=== PATIENT | female | born 1930 | race Caucasian/White ===

== ENCOUNTER → 2016-06-07 | Outpatient (CLI) | payer OTHER ==
[2015-06-02 13:32] VITALS: BP 126/77; PULSE 76
[~2016-06-07] MED LIST: ASPCH81X PO; ATEN-173 PO; CALC-279 PO; FSMD/70 PO; HYDR25TA5 PO; MULTTAB58 PO; TAMO20TA47 PO; vitaminD PO
[2016-06-07 14:02] VITALS: BP 129/77; PULSE 73; TEMP 37; O2SAT 96
--- NOTE | 2016-06-07 14:46 | Radiation Oncology Follow-Up ---
Radiation Oncology Follow-Up Date of Visit Jun 07, 2016. 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 She denies any changes to her breast. She's noted no masses or tenderness no change in the axilla. She's had no swelling of her arm. She is up-to-date on mammography. She is unsure as to whether her next mammogram is scheduled. She is on tamoxifen. She denies any side effects. Allergies Coded Allergies: Codeine (Verified Allergy, Unknown, ., 06/26/13) MAKES HER FEEL; " LIKE SHE'S NOT EVEN HERE" Uncoded Allergies: CODEINE (Allergy, Unknown, 07/20/03) Home Medications Scheduled Alendronate/Cholecalciferol (Fosamax+D 70MG/2800 Iu), 1 TABLET PO WK Aspirin (Aspirin Chewable), 81 MG PO DAILY Atenolol (Tenormin), 25 MG PO DAILY Calcium Citrate-Vitamin D (Calcium Citrate + D), 1 TAB PO DAILY Hydrochlorothiazide (Hydrochlorothiazide), 1 TAB PO DAILY Multiple Vitamin (Multivitamin), 1 TAB PO DAILY Tamoxifen (Nolvadex), 20 MG PO DAILY [vitaminD], 1 TAB PO DAILY Review of Systems Gastrointestinal: Symptoms: WNL Oral: Symptoms: No Problems Respiratory: Symptoms: WNL Urinary: Symptoms: WNL Skin: Symptoms: No Problems Breast: Right Upper Arm Measurement: 27.5 Right Mid Arm Measurement: 24.5 Right Wrist Measurement: 15.9 Left Upper Arm Measurement: 28.4 Left Mid Arm Measurement: 24.0 Left Wrist Measurement: 15.8 Arm Dominence: Right Physical Exam Vital Signs Date Time Temp Pulse Resp B/P Pulse Ox O2 Delivery O2 Flow Rate FiO2 06/07/16 14:02 37.0 73 16 129/77 96 Pain: Pain Location: None Patient Pain Scale: 0 - 10 Initial Pain Intensity: 0.0 Fatigue: None General Appearance: no apparent distress Eyes: normal inspection, EOMI ENT: normal ENT inspection, hearing grossly normal Neck: no adenopathy, thyroid normal Respiratory/Chest: lungs clear, no respiratory distress, no accessory muscle use Breast: Breast examination reveals well-healed incisions of the right breast. There are no masses or tenderness and no axillary adenopathy. The incision is in the upper outer portion of the breast. There are no skin retractions or nipple changes. Using the [place] score cosmesis she has a in excellent outcome. Left breast should no masses or tenderness and no axillary adenopathy. Cardiovascular: regular rate, rhythm, no gallop, no murmur Extremities: no pedal edema Neurologic/Psychiatric: no motor/sensory deficits, alert, normal mood/affect Skin: warm/dry Lymphatic: no adenopathy Additional Studies BILATERAL DIGITAL DIAGNOSTIC MAMMOGRAM TOMOSYNTHESIS WITH CAD: 02/16/2016 CLINICAL HISTORY: Personal history of breast cancer. Asymptomatic. TECHNIQUE: Bilateral CC and MLO 2-D digital and tomosynthesis images, spot magnification right CC and ML views were obtained. Current study was also evaluated with a Computer Aided Detection (CAD) system. COMPARISON: Comparison is made to exams dated: 02/10/2015 mammogram, 01/28/2014 mammogram, 03/25/2013 mammogram, 01/29/2012 mammogram, and 11/23/2010 mammogram - [facility]. BREAST COMPOSITION: The tissue of both breasts is extremely dense, which lowers the sensitivity of mammography. FINDINGS: A linear scar marker overlies the upper outer posterior right breast. There is expected architectural distortion in the upper outer posterior right breast, at the site of prior lumpectomy. There are mild vascular calcifications in the breasts. There are stable groupings of microcalcifications in the superior posterior and lower inner middle one third of the left breast that are unchanged dating back to at least 01/03/2012, therefore likely benign given 4 years of stability. No obvious new mass, architectural distortion or cluster of microcalcifications is seen bilaterally. Recommend follow-up in 1 year for annual bilateral mammography as well as repeat spot magnification views of the right lumpectomy bed. IMPRESSION: IMPRESSION: ACR BI-RADS CATEGORY 2: BENIGN Stable mammographic appearance of the breasts. There is no mammographic evidence of malignancy. Recommend follow-up bilateral mammography in one year and remaining a diagnostic patient so that additional spot magnification views can be obtained of the right lumpectomy bed. These results and recommendations were discussed with the patient at the time of the exam. Approximately 10% of breast cancers are not detected with mammography. A negative mammographic report should not delay biopsy if a clinically suggestive mass is present. Audra Taveras M.D. ay/:02/16/2016 14:45:00 M[employer] Shoulder Pad: Rosaura MARMOLEJO(Ralph)(M), [facility] letter sent: Normal 1/2 BI-RADS Code: ACR BI-RADS Category 2: Benign Dictated by: Audra Taveras MD Signed by: Audra Taveras MD Assessment & Plan Plan: Continue with the scheduled follow-ups. She'll see Dr. Raulito Betancourt on . She did not have mammography scheduled. A mammogram was scheduled for after February 15. She continues on tamoxifen. We asked her to return to our office in 1 year. She may call if she has any questions or concerns in the interim. Total Time In Follow-Up I spent 20 minutes speaking to the patient performing examination. I spent 15 minutes reviewing information in completing this note. Copy To Raulito Betancourt M.D.; Kyung Ibarra PA-C
== END | disposition home or self-care (01) ==
LOC: C.ONC 13:51
PROVIDERS: ATTEND Radiology Radiation Oncology
DX: Z08 Encounter for follow-up examination after completed treatment for malignant neoplasm (principal); Z92.3 Personal history of irradiation; Z85.3 Personal history of malignant neoplasm of breast

== ENCOUNTER → 2017-06-13 | Outpatient (CLI) | payer OTHER ==
[2015-06-02 13:32] VITALS: BP 126/77; PULSE 76
[~2017-06-13] MED LIST changes: -TAMO20TA47 PO; +TAMO20TA9 PO
[2017-06-13 14:35] VITALS: BP 139/79; PULSE 68; TEMP 36.7; O2SAT 94
--- NOTE | 2017-06-13 16:26 | Radiation Oncology Follow-Up ---
Radiation Oncology Follow-Up Date of Visit Jun 13, 2017. 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 She denies any changes to her breasts. She has noted no masses or tenderness no change of the axilla. She has had no swelling of her arm. She is up-to-date on mammography. Mammography is performed in February. Her next mammogram is scheduled for February 2018. She is on tamoxifen and denies side effects. Allergies Coded Allergies: Codeine (Verified Allergy, Unknown, ., 06/26/13) MAKES HER FEEL; " LIKE SHE'S NOT EVEN HERE" Uncoded Allergies: CODEINE (Allergy, Unknown, 07/20/03) Home Medications Scheduled Alendronate/Cholecalciferol (Fosamax+D 70MG/2800 Iu), 1 TABLET PO WK Aspirin (Aspirin Chewable), 81 MG PO DAILY Atenolol (Tenormin), 25 MG PO DAILY Calcium Citrate-Vitamin D (Calcium Citrate + D), 1 TAB PO DAILY Hydrochlorothiazide (Hydrochlorothiazide), 1 TAB PO DAILY Multiple Vitamin (Multivitamin), 1 TAB PO DAILY Tamoxifen (Nolvadex), 20 MG PO DAILY [vitaminD], 1 TAB PO DAILY Review of Systems Gastrointestinal: Symptoms: WNL Oral: Symptoms: No Problems Respiratory: Symptoms: WNL Urinary: Symptoms: WNL Skin: Symptoms: No Problems Breast: Right Upper Arm Measurement: 27.8 Right Mid Arm Measurement: 24.5 Right Wrist Measurement: 15.9 Left Upper Arm Measurement: 27.5 Left Mid Arm Measurement: 24.1 Left Wrist Measurement: 15.9 Arm Dominence: Right Physical Exam Vital Signs Date Time Temp Pulse Resp B/P (MAP) Pulse Ox O2 Delivery O2 Flow Rate FiO2 06/13/17 14:35 36.7 68 16 139/79 94 Fatigue: None General Appearance: no apparent distress Eyes: normal inspection, EOMI ENT: normal ENT inspection, hearing grossly normal Neck: no adenopathy, thyroid normal Respiratory/Chest: lungs clear, no respiratory distress, no accessory muscle use Breast: Examination of the right breast reveals well-healed incision. There are no masses or tenderness and no axillary adenopathy. She does have some fibrous changes in the upper quadrants of the breasts. There are no distinct masses. She has no skin retractions or nipple changes. Using the [place] score of cosmesis she has an excellent outcome. The left breast showed no masses or tenderness and no axillary adenopathy. Cardiovascular: regular rate, rhythm, no gallop, no murmur Extremities: no pedal edema Neurologic/Psychiatric: no motor/sensory deficits, alert, normal mood/affect Skin: warm/dry Pain Management Patient Reports Pain: No Patient Preferred Pain Scale: 0 - 10 Initial Pain Intensity: 0.0 Pain Management Plan She denies pain therefore requires no pain management. Laboratory Laboratory Results: not applicable Pathology Pathology Results: not applicable Imaging Imaging Studies: were reviewed, and pertinent findings noted below Imaging Comments Patient: JERMAIN DOWNING [facility] Rec: [id number] Address1: [address] [place] [address] [facility]: [id number] Date: 1930 Sex: F Ref Phy: Kyung Ibarra PA-C Att Phy: Liz Avitia PA-C Manda Phy: Kyung Ibarra PA-C Inter Phy: Alma Guerra MD [facility] Zip: [place] [address] SC: C.MAMM Report #: [id number] [employer] Trimmer: ALE Diagnosis: ASYMPTOMATIC/HX R BREAST CA Service Date: 02/21/17 MNE: [id number] Ordering Dr: Liz Avitia PA-C CC: Liz Avitia PA-C CONF: DICTATED BY: Alma Guerra MD MAMMOGRAPHY REPORT BILATERAL DIGITAL DIAGNOSTIC MAMMOGRAM TOMOSYNTHESIS WITH CAD: 02/21/2017 CLINICAL HISTORY: Asymptomatic. History of right breast cancer status post right lumpectomy. TECHNIQUE: Breast tomosynthesis in addition to standard 2D mammography was performed. Current study was also evaluated with a Computer Aided Detection (CAD ) system. Bilateral CC and MLO 2-D and tomosynthesis images and spot magnification right cc and ML views were obtained. COMPARISON: Comparison is made to exams dated: 02/16/2016 mammogram, 08/05/2014 mammogram, 02/10/2015 mammogram, 01/28/2014 mammogram, 03/25/2013 mammogram, and 03/03/2013 mammogram - [facility]. BREAST COMPOSITION: The tissue of both breasts is extremely dense, which lowers the sensitivity of mammography. FINDINGS: There is stable postsurgical architectural distortion in the right upper outer quadrant at the site of prior lumpectomy. A linear scar marker denotes a scar in the right upper outer quadrant. Spot magnification views of the lumpectomy bed demonstrate no suspicious masses or clusters of microcalcifications. The remainder of both breasts are stable compared to prior exams, without suspicious masses, calcifications, or areas of architectural distortion noted. Scattered benign-appearing left breast calcifications are stable compared to prior exams. IMPRESSION: ACR BI-RADS CATEGORY 2: BENIGN There is no mammographic evidence of malignancy in either breast. A 1 year screening mammogram is recommended. The patient has been verbally notified of the results. Approximately 10% of breast cancers are not detected with mammography. A negative mammographic report should not delay biopsy if a clinically suggestive mass is present. Alma Guerra M.D. ah/:02/21/2017 13:03:18 [employer]: Mari HATCH)(Norah), [facility] letter sent: Normal 1/2 BI-RADS Code: ACR BI-RADS Category 2: Benign Dictated by: Alma Guerra MD Signed by: Alma Guerra MD Assessment & Plan Plan: Continue regular follow-up with medical oncology and her primary care provider. She has a recheck mammogram scheduled for February. She continues on tamoxifen. We asked her to return to our office in 1 year. She may call if she has any questions or concerns in the interim. Total Time In Follow-Up I spent 20 minutes speaking to the patient and performing examination. I spent 15 minutes reviewing information and completing this note. Copy To Raulito Betancourt M.D.; Kyung Ibarra PA-C
== END | disposition home or self-care (01) ==
LOC: C.ONC 14:14
PROVIDERS: ATTEND Physician Assistant Medical
DX: Z08 Encounter for follow-up examination after completed treatment for malignant neoplasm (principal); Z92.3 Personal history of irradiation; Z85.3 Personal history of malignant neoplasm of breast